=== PATIENT | male | born 1965 | race Caucasian/White ===

== ENCOUNTER 2017-11-30 06:00 | Inpatient (IN) | payer OTHER ==
[~2017-11-30] VITALS: Ht 165.1 cm; Wt 67.6 kg
[2017-11-30] MEDS ORDERED: ACETAMINOPHEN 325MG TABLET PO STA (09:06)
[2017-11-30 09:32] LABS: EOSINOPHILS % 5.2 % (0.0-5.0); HEMATOCRIT. 32.7 % (42.0-52.0); LYMPHOCYTES % 11.5 % (20.0-50.0); MEAN CORPUSCULAR HEMOGLOBIN 32.8 pg (28.0-32.0); MEAN CORPUSCULAR VOLUME 97.7 fL (80.0-94.0); MEAN PLATELET VOLUME 7.8 fl (7.4-10.4); MONOCYTES % 8.8 % (2.0-8.0); NEUTROPHILS % 73.5 % (40.0-76.0); PLATELET 211 x1000/uL (130-400); RED BLOOD CELL COUNT 3.34 mill/uL (4.7-6.1); RED CELL DISTRIBUTION WIDTH 16.3 % (11.6-14.6)
[2017-11-30 09:54] LABS: CLARITY URINE CLEAR (CLEAR); COLOR URINE YELLOW (YELLOW); KETONES URINE NEGATIVE (NEGATIVE); LEUKOCYTE ESTERASE URINE NEGATIVE (NEGATIVE); NITRITE URINE NEGATIVE (NEGATIVE); OCCULT BLOOD URINE 1+ (NEGATIVE); PROTEIN URINE 4+ (NEGATIVE); SPECIFIC GRAVITY URINE 1.019 (1.005-1.030); UROBILINOGEN URINE 0.2 E.U./dL (0.2-1.0)
[2017-11-30 10:26] LABS: CHLORIDE 112 mEq/L (98-107)
[2017-11-30] MEDS ORDERED: SODIUM POLYSTYRENE SULFONATE 15 G/60 ML BOT PO ONE (11:15)
[2017-11-30] MEDS ORDERED: SODIUM BICARBONATE 8.4% 1 MEQ/ML 50ML SYR IV ONE (11:15)
[2017-11-30] MEDS ORDERED: DEXTROSE 50% WATER 50ML SYRINGE IV ONE (11:15)
[2017-11-30] MEDS ORDERED: INSULIN REGULAR (HUMULIN R) 300UNITS/3ML IV ONE (11:15)
[2017-11-30] MEDS ORDERED: MAGNESIUM/ALUMINUM HYDROXIDE/SIMETHICONE 30ML UDC PO PRN (15:45)
[2017-11-30] MEDS ORDERED: GUAIFENESIN 200MG/10ML SUGAR FREE UDC PO PRN (15:45)
[2017-11-30] MEDS ORDERED: NA PHOS,M-B/NA PHOS,DI-BA ENEMA 118ML PR PRN (15:45)
[2017-11-30] MEDS ORDERED: DEXTROSE 50% WATER 50ML SYRINGE IV PRN (15:45)
[2017-11-30] MEDS ORDERED: DOCUSATE SODIUM 100MG CAPSULE PO PRN (15:45)
[2017-11-30] MEDS ORDERED: DIPHENHYDRAMINE 50MG/ML VIAL IV PRN (15:45)
[2017-11-30] MEDS ORDERED: CLONIDINE 0.1MG TABLET PO PRN (15:45)
[2017-11-30] MEDS ORDERED: ACETAMINOPHEN 325MG TABLET PO PRN (15:45)
[2017-11-30] MEDS ORDERED: IPRATROPIUM/ALBUTEROL 0.5-3(2.5)MG/3ML NEB INH PRN (15:45)
[2017-11-30] MEDS ORDERED: ZOLPIDEM TARTRATE 5MG TABLET PO PRN (15:45)
[2017-11-30] MEDS ORDERED: ONDANSETRON HCL 4MG/2ML VIAL IV PRN (15:45)
[2017-11-30] MEDS ORDERED: LORAZEPAM 0.5MG TABLET PO PRN (15:45)
[2017-11-30] MEDS ORDERED: NITROGLYCERIN 0.4MG TABLET SL SL PRN (15:45)
[2017-11-30] MEDS ORDERED: TRAMADOL 50MG TABLET PO PRN (18:43)
[2017-11-30 22:42] LABS: *AMPHETAMINES SCREEN URINE NEGATIVE (NEGATIVE); *BARBITURATES SCREEN URINE NEGATIVE (NEGATIVE); *BENZODIAZEPINES SCREEN URINE NEGATIVE (NEGATIVE); *COCAINE SCREEN URINE NEGATIVE (NEGATIVE); CANNABINOID URINE SCREEN NEGATIVE (NEGATIVE); METHADONE URINE SCREEN NEGATIVE (NEGATIVE); OPIATES URINE SCREEN NEGATIVE (NEGATIVE); PHENCYCLIDINE URINE SCREEN NEGATIVE (NEGATIVE)
[2017-12-01 04:45] VITALS: BP 164/91
[2017-12-01] MEDS ORDERED: SODIUM POLYSTYRENE SULFONATE 15 G/60 ML BOT PO NR (06:00)
[2017-12-01] MEDS: HYDRALAZINE HCL 50MG TABLET PO SCH ×3 (06:13→21:24)
[2017-12-01] MEDS: INSULIN LISPRO 100 UNITS/ML SUBCUT SCH ×4 (06:15→21:23)
[2017-12-01] MEDS: BLOOD SUGAR DIAGNOSTIC STRIP TEST SCH ×4 (06:15→21:00)
[2017-12-01 08:00] VITALS: BP 123/71
[2017-12-01] MEDS: CITRIC ACID/SODIUM CITRATE SOLN 15ML UDC PO SCH ×3 (09:21→18:13)
[2017-12-01] MEDS: FUROSEMIDE 40MG/4ML VIAL IVP SCH ×2 (09:22→21:22)
[2017-12-01] MEDS: METOPROLOL TARTRATE 25MG TABLET PO SCH ×2 (09:22→21:00)
[2017-12-01] MEDS: FAMOTIDINE 20MG/2ML VIAL IV SCH (09:22)
[2017-12-01] MEDS: AMLODIPINE 10MG TABLET PO SCH (09:22)
[2017-12-01] MEDS: FOLIC ACID/VITAMIN B COMP W-C TABLET PO SCH (09:23)
[2017-12-01] MEDS: SEVELAMER CARBONATE 800 MG TABLET PO SCH ×3 (09:23→18:14)
[2017-12-01] MEDS: ENOXAPARIN 30MG/0.3ML SYR SUBCUT SCH (09:24)
[2017-12-01 12:00] VITALS: BP 132/73
[2017-12-01 16:00] VITALS: BP 122/73
[2017-12-01 20:30] VITALS: BP 153/83
[2017-12-02 00:10] VITALS: BP 139/80
[2017-12-02 04:02] VITALS: BP 154/81
[2017-12-02] MEDS: BLOOD SUGAR DIAGNOSTIC STRIP TEST SCH (06:15)
[2017-12-02] MEDS: HYDRALAZINE HCL 50MG TABLET PO SCH (06:16)
[2017-12-02] MEDS ORDERED: ASPI-1159 PO (06:33)
[2017-12-02] MEDS ORDERED: SEVE0.8P3 PO (06:33)
[2017-12-02] MEDS ORDERED: CALC0.253 PO (06:33)
[2017-12-02] MEDS ORDERED: ASCO-316 PO (06:33)
[2017-12-02] MEDS ORDERED: LOSA100T14 PO (06:33)
[2017-12-02] MEDS ORDERED: CALC667C PO (06:33)
[2017-12-02] MEDS ORDERED: FURO40TA5 PO (06:33)
[2017-12-02] MEDS ORDERED: [UNRECOGNIZED DRUG - OTHER] PO (06:33)
[2017-12-02] MEDS ORDERED: DOCU-138 PO ×2 (06:33)
[2017-12-02] MEDS ORDERED: CARV12.545 PO (06:33)
[2017-12-02 07:09] LABS: BASOPHILS % 0.9 % (0.0-2.0); EOSINOPHILS % 5.9 % (0.0-5.0); HEMATOCRIT. 29.8 % (42.0-52.0); HEMOGLOBIN. 10.2 g/dL (14.0-18.0); LYMPHOCYTES % 33.1 % (20.0-50.0); MEAN CORPUSCULAR HEMOGLOBIN 32.2 pg (28.0-32.0); MEAN CORPUSCULAR VOLUME 94.5 fL (80.0-94.0); MEAN PLATELET VOLUME 7.8 fl (7.4-10.4); MONOCYTES % 11.8 % (2.0-8.0); NEUTROPHILS % 48.3 % (40.0-76.0); PLATELET 195 x1000/uL (130-400); RED BLOOD CELL COUNT 3.16 mill/uL (4.7-6.1); RED CELL DISTRIBUTION WIDTH 15.4 % (11.6-14.6)
[2017-12-02] MEDS: INSULIN LISPRO 100 UNITS/ML SUBCUT SCH (07:27)
[2017-12-02 07:31] LABS: PHOSPHORUS 4.9 mg/dL (2.5-4.9)
[2017-12-02 08:00] VITALS: BP 158/88
[2017-12-02] MEDS: FAMOTIDINE 20MG/2ML VIAL IV SCH (08:27)
[2017-12-02] MEDS: FUROSEMIDE 40MG/4ML VIAL IVP SCH (08:27)
[2017-12-02] MEDS: SEVELAMER CARBONATE 800 MG TABLET PO SCH (08:27)
[2017-12-02] MEDS: CITRIC ACID/SODIUM CITRATE SOLN 15ML UDC PO SCH (08:27)
[2017-12-02] MEDS: ENOXAPARIN 30MG/0.3ML SYR SUBCUT SCH (08:28)
[2017-12-02] MEDS: METOPROLOL TARTRATE 25MG TABLET PO SCH (08:28)
[2017-12-02] MEDS: FOLIC ACID/VITAMIN B COMP W-C TABLET PO SCH (08:28)
[2017-12-02] MEDS: AMLODIPINE 10MG TABLET PO SCH (08:28)
[2017-12-02 10:45] VITALS: BP 158/88
== END 2017-12-02 11:30 | disposition home or self-care (01) | DRG 640 ==
LOC: ER 06:00 → 6WST 11:33 → EDBEDREQ 12-01 01:45 → ENRESERV 12-01 03:24
PROVIDERS: ADMIT Internal Medicine; ATTEND Internal Medicine
DX: E87.5 Hyperkalemia (principal); N18.6 End stage renal disease; E11.22 Type 2 diabetes mellitus with diabetic chronic kidney disease; E87.2 Acidosis; I12.0 Hypertensive chronic kidney disease with stage 5 chronic kidney disease or end stage renal disease; D63.8 Anemia in other chronic diseases classified elsewhere; J06.9 Acute upper respiratory infection, unspecified; E78.00 Pure hypercholesterolemia, unspecified; R09.02 Hypoxemia; Z82.49 Family history of ischemic heart disease and other diseases of the circulatory system; Z83.3 Family history of diabetes mellitus; Z91.19 Patient's noncompliance with other medical treatment and regimen; Z99.2 Dependence on renal dialysis; Z79.899 Other long term (current) drug therapy
CPT/HCPCS: 36415; 71045; 76770; 80048; 80053; 80061; 80305; 81003; 82962; 83036; 83735; 84100; 84484; 85025; 87070; 87430; 87804; 93005; 93970; 96374; 96375; 99291; J1650; J1815; J1940; J3490; J7030

== ENCOUNTER 2018-06-11 10:25 | Emergency (ER) | payer OTHER ==
[~2018-06-11] VITALS: Ht 152.4 cm; Wt 72.0 kg
[~2018-06-11 10:25] MED LIST: ASCO-316 PO; ASPI-1159 PO; CALC0.253 PO; CALC667C PO; CARV12.545 PO; DOCU-138 PO; FURO40TA5 PO; LOSA100T14 PO; SEVE0.8P3 PO; [UNRECOGNIZED DRUG - OTHER] PO
[2018-06-11 14:16] LABS: BASOPHILS % 1.3 % (0.0-2.0); EOSINOPHILS % 8.6 % (0.0-5.0); HEMATOCRIT. 32.4 % (42.0-52.0); HEMOGLOBIN. 11.1 g/dL (14.0-18.0); LYMPHOCYTES % 28.5 % (20.0-50.0); MEAN CORPUSCULAR VOLUME 96.3 fL (80.0-94.0); MEAN PLATELET VOLUME 7.5 fl (7.4-10.4); MONOCYTES % 7.7 % (2.0-8.0); NEUTROPHILS % 53.9 % (40.0-76.0); PLATELET 240 x1000/uL (130-400); RED BLOOD CELL COUNT 3.36 mill/uL (4.7-6.1); RED CELL DISTRIBUTION WIDTH 14.6 % (11.6-14.6)
[2018-06-11 14:22] LABS: CHLORIDE 100 mEq/L (98-107)
[2018-06-11 14:23] LABS: PARTIAL THROMBOPLASTIN TIME 26.2 sec (23.4-31.0); PROTHROMBIN TIME 10.4 sec (9.1-11.1)
[2018-06-11 17:15] VITALS: BP 198/98
== END 2018-06-11 18:27 | disposition home or self-care (01) ==
LOC: ER 10:25
DX: H53.8 Other visual disturbances (principal); E11.22 Type 2 diabetes mellitus with diabetic chronic kidney disease; E11.65 Type 2 diabetes mellitus with hyperglycemia; I12.0 Hypertensive chronic kidney disease with stage 5 chronic kidney disease or end stage renal disease; E78.00 Pure hypercholesterolemia, unspecified; R94.31 Abnormal electrocardiogram [ECG] [EKG]; H40.9 Unspecified glaucoma; H54.62 Unqualified visual loss, left eye, normal vision right eye; D53.9 Nutritional anemia, unspecified; E87.5 Hyperkalemia; N18.6 End stage renal disease; Z99.2 Dependence on renal dialysis
CPT/HCPCS: 36415; 80053; 85025; 85610; 85730; 93005; 99285

== ENCOUNTER 2019-10-10 08:12 | Emergency (ER) | payer OTHER ==
[~2019-10-10] VITALS: Ht 165.1 cm; Wt 71.0 kg
[~2019-10-10 08:12] MED LIST changes: -ASPI-1159 PO; +ASPI-1497 PO; -LOSA100T14 PO; +LOSA100T32 PO
[2019-10-10 08:55] LABS: BASOPHILS % 1.3 % (0.0-2.0); EOSINOPHILS % 5.7 % (0.0-5.0); LYMPHOCYTES % 19.5 % (20.0-50.0); MEAN CORPUSCULAR HEMOGLOBIN 34.2 pg (28.0-32.0); MEAN CORPUSCULAR VOLUME 99.9 fL (80.0-94.0); MEAN PLATELET VOLUME 6.7 fl (7.4-10.4); MONOCYTES % 6.5 % (2.0-8.0); PLATELET 336 x1000/uL (130-400)
[2019-10-10 08:59] LABS: CHLORIDE 98 mEq/L (98-107)
[2019-10-10 09:45] LABS: PHOSPHORUS 3.4 mg/dL (2.5-4.9)
[2019-10-10 10:18] VITALS: BP 138/85
== END 2019-10-10 10:20 | disposition home or self-care (01) ==
LOC: ER 08:12
DX: Z04.89 Encounter for examination and observation for other specified reasons (principal); E87.5 Hyperkalemia; E11.22 Type 2 diabetes mellitus with diabetic chronic kidney disease; I12.0 Hypertensive chronic kidney disease with stage 5 chronic kidney disease or end stage renal disease; N18.6 End stage renal disease; E78.00 Pure hypercholesterolemia, unspecified; H40.9 Unspecified glaucoma; Z99.2 Dependence on renal dialysis
CPT/HCPCS: 36415; 80053; 83735; 84100; 85025; 93005; 99284

== ENCOUNTER 2019-11-29 10:49 | Emergency (ER) | payer OTHER ==
[~2019-11-29] VITALS: Ht 165.1 cm; Wt 71.0 kg
[2019-11-29] MEDS ORDERED: MORPHINE SULFATE 4 MG/ML CPJ (NOT FOR IM USE) IV STA (12:22)
[2019-11-29 13:00] LABS: BASOPHILS % 0.5 % (0.0-2.0); HEMATOCRIT. 31.3 % (42.0-52.0); HEMOGLOBIN. 10.7 g/dL (14.0-18.0); LYMPHOCYTES % 8.8 % (20.0-50.0); MEAN CORPUSCULAR HEMOGLOBIN 35.2 pg (28.0-32.0); MEAN CORPUSCULAR VOLUME 102.9 fL (80.0-94.0); MEAN PLATELET VOLUME 7.4 fl (7.4-10.4); NEUTROPHILS % 82.7 % (40.0-76.0); PLATELET 220 x1000/uL (130-400); RED BLOOD CELL COUNT 3.05 mill/uL (4.7-6.1); RED CELL DISTRIBUTION WIDTH 15.2 % (11.6-14.6)
[2019-11-29 13:07] LABS: CHLORIDE 102 mEq/L (98-107)
[2019-11-29 13:10] LABS: INR 1.1; PROTHROMBIN TIME 11.5 sec (9.6-11.0)
[2019-11-29] MEDS ORDERED: INSULIN REGULAR (HUMULIN R) 300UNITS/3ML IV ONE (15:00)
[2019-11-29] MEDS ORDERED: SODIUM POLYSTYRENE SULFONATE 15 G/60 ML BOT PO ONE (15:00)
[2019-11-29] MEDS ORDERED: MORPHINE SULFATE 4 MG/ML CPJ (NOT FOR IM USE) IV ONE ×2 (15:00→21:00)
[2019-11-29] MEDS ORDERED: DEXTROSE 50% WATER 50ML SYRINGE IV ONE (15:00)
[2019-11-29] MEDS ORDERED: INSULIN REGULAR (HUMULIN R) 300UNITS/3ML IV NR (15:15)
[2019-11-29] MEDS ORDERED: DEXTROSE 50% WATER 50ML SYRINGE IV NR (15:15)
[2019-11-29] MEDS ORDERED: MORPHINE SULFATE 4 MG/ML CPJ (NOT FOR IM USE) IV NR (15:15)
[2019-11-29 19:45] VITALS: BP 158/84
[2019-11-29] MEDS ORDERED: ONDANSETRON HCL 4MG/2ML INJ IV ONE (21:00)
== END 2019-11-29 21:00 | disposition short-term general hospital (02) ==
LOC: ER 10:49
DX: S32.512A Fracture of superior rim of left pubis, initial encounter for closed fracture (principal); S32.511A Fracture of superior rim of right pubis, initial encounter for closed fracture; S32.432A Displaced fracture of anterior column [iliopubic] of left acetabulum, initial encounter for closed fracture; E87.5 Hyperkalemia; I13.11 Hypertensive heart and chronic kidney disease without heart failure, with stage 5 chronic kidney disease, or end stage renal disease; E11.22 Type 2 diabetes mellitus with diabetic chronic kidney disease; N18.6 End stage renal disease; M54.5 Low back pain; H40.9 Unspecified glaucoma; Z99.2 Dependence on renal dialysis; E78.00 Pure hypercholesterolemia, unspecified; Z98.890 Other specified postprocedural states; Z79.899 Other long term (current) drug therapy; W11.XXXA Fall on and from ladder, initial encounter; Y93.89 Activity, other specified; Y92.89 Other specified places as the place of occurrence of the external cause; Y99.8 Other external cause status
CPT/HCPCS: 36415; 71045; 72131; 72192; 73502; 73552; 80053; 82962; 84484; 85025; 85610; 86850; 86900; 86901; 93005; 96374; 96375; 96376; 99285; J1815; J2270; J2405

== ENCOUNTER 2025-02-20 16:45 | Inpatient (IN) | payer MEDICAID, MEDICARE ==
[~2025-02-20] VITALS: Ht 157.5 cm; Wt 61.2 kg
[~2025-02-20 16:45] MED LIST changes: -LOSA100T32 PO; +LOSA100T33 PO
[2025-02-20 17:41] LABS: BASOPHILS % 1.3 % (0.0-2.0); DIFFERENTIAL COMMENT 0; EOSINOPHILS % 1.6 % (0.0-5.0); HEMATOCRIT. 24.2 % (42.0-52.0); HEMOGLOBIN. 8.4 g/dL (14.0-18.0); LYMPHOCYTES % 9.6 % (20.0-50.0); MEAN CORPUSCULAR HEMOGLOBIN 35.1 pg (28.0-32.0); MEAN CORPUSCULAR HGB CONC 34.9 g/dL (31.0-37.0); MEAN CORPUSCULAR VOLUME 100.5 fL (80.0-94.0); MEAN PLATELET VOLUME 8.5 fl (7.4-10.4); MONOCYTES % 10.1 % (2.0-8.0); NEUTROPHILS % 77.4 % (40.0-76.0); PLATELET 194 x1000/uL (130-400); RED CELL DISTRIBUTION WIDTH 19.9 % (11.6-14.6); WHITE BLOOD COUNT 4.4 x1000/uL (4.5-11.0)
[2025-02-20 17:49] LABS: CHLORIDE 94 mEq/L (98-107); POTASSIUM 3.5 mEq/L (3.5-5.1); SODIUM 134 mEq/L (136-145)
[2025-02-20 17:50] LABS: CARBON DIOXIDE 31 mEq/L (21-32)
[2025-02-20 17:52] LABS: INR 1.2; PARTIAL THROMBOPLASTIN TIME 23.4 sec (23.4-31.0); PROTHROMBIN TIME 12.3 sec (9.6-11.0)
[2025-02-20 17:55] LABS: CREATININE 4.6 mg/dL (0.6-1.3); ETHANOL BLOOD < 10 mg/dL (<10); GLUCOSE 121 mg/dL (70-105); UREA NITROGEN BLOOD 34 mg/dL (9-23)
[2025-02-20 17:56] LABS: AMMONIA 35 uMol/L (<32)
[2025-02-20 17:57] LABS: ALANINE AMINOTRANSFERASE 24 IU/L (10-49); ALBUMIN 3.3 g/dL (3.2-4.8); ASPARTATE AMINOTRANSFERASE 81 IU/L (<34); BILIRUBIN DIRECT 0.6 mg/dL (<=3.0); BILIRUBIN TOTAL 1.1 mg/dL (0.1-1.0); PROTEIN TOTAL 6.3 g/dL (6.0-8.3)
[2025-02-20 18:12] LABS: TROPONIN I HIGH SENSITIVITY 210 ng/L (3.0-53)
[2025-02-20] MEDS: ASPIRIN 81MG TABLET PO ONE (19:56)
[2025-02-20] MEDS: LACTULOSE 20G/30ML UDC PO ONE (20:00)
[2025-02-20 22:25] VITALS: BP 131/73; PULSE 86; RESP 20; TEMP 36.7
[2025-02-20] MEDS ORDERED: IOHEXOL-350 100 ML BOTTLE ONE (23:34)
[2025-02-21] VITALS (9 sets, daily range): BP systolic 90–126; BP diastolic 46–74; PULSE 72–100; RESP 18–20; TEMP 36.6–36.9; O2SAT 95–100
[2025-02-21] MEDS ORDERED: CALC667C MT (00:34)
[2025-02-21] MEDS ORDERED: GABA-529 MT (00:34)
[2025-02-21] MEDS ORDERED: SODI10PO PO (00:34)
[2025-02-21] MEDS ORDERED: OMEP20CA14 MT (00:34)
[2025-02-21] MEDS ORDERED: LISI2.5T47 MT (00:34)
[2025-02-21] MEDS ORDERED: TRAM50TA3 MT (00:34)
[2025-02-21] MEDS ORDERED: PIOG15TA66 MT (00:34)
[2025-02-21] MEDS ORDERED: CARV12.545 MT (00:34)
[2025-02-21] MEDS ORDERED: AMLO5TAB88 MT (00:34)
[2025-02-21] MEDS ORDERED: LEVO75TA7 MT (00:34)
[2025-02-21] MEDS ORDERED: HYDROCODONE/ACETAMINOPHEN 5/325MG TABLET PO PRN (00:45)
[2025-02-21] MEDS ORDERED: DEXTROSE 50% WATER 50ML SYRINGE IV PRN (00:45)
[2025-02-21] MEDS ORDERED: NALOXONE HCL 0.4MG/ML VIAL IV PRN (01:15)
[2025-02-21] MEDS: GABAPENTIN 100MG CAPSULE PO SCH (01:40)
[2025-02-21] MEDS: BLOOD SUGAR DIAGNOSTIC STRIP TEST SCH (06:55)
[2025-02-21] MEDS: INSULIN LISPRO 100 UNITS/ML SUBCUT SCH (07:43)
[2025-02-21 07:57] LABS: CALCIUM 9.8 mg/dL (8.7-10.4)
[2025-02-21 08:04] LABS: PHOSPHORUS 3.5 mg/dL (2.5-4.9)
[2025-02-21 08:05] LABS: THYROID STIMULATING HORMONE 26.72 uIU/mL (0.55-4.78)
[2025-02-21 08:06] LABS: CREATININE 5.8 mg/dL (0.6-1.3)
[2025-02-21 08:19] LABS: HEPATITIS B SURFACE ANTIGEN NEGATIVE (Negative)
[2025-02-21 08:40] LABS: HEPATITIS C AB NON REACTIVE (Neg) (Negative)
[2025-02-21 08:46] LABS: HEMATOCRIT 28.4 % (42.0-52.0); HEMOGLOBIN 9.7 g/dL (14.0-18.0); MEAN CORPUSCULAR HEMOGLOBIN 34.8 pg (28.0-32.0); MEAN CORPUSCULAR HGB CONC 34.2 g/dL (31.0-37.0); MEAN CORPUSCULAR VOLUME 101.7 fL (80.0-94.0); PLATELET 208 x1000/uL (130-400); RED BLOOD CELL COUNT 2.79 mill/uL (4.7-6.1); RED CELL DISTRIBUTION WIDTH 19.8 % (11.6-14.6); WHITE BLOOD COUNT 5.1 x1000/uL (4.5-11.0)
[2025-02-21] MEDS: AMLODIPINE 5MG TABLET PO SCH (09:00)
[2025-02-21] MEDS ORDERED: MEDICATION NOT ON FORMULARY EA (Omeprazole 1 CAP) MT SCH (09:00)
[2025-02-21] MEDS: SODIUM ZIRCONIUM CYCLOSILICATE 10GM/PACKET PO SCH (09:03)
[2025-02-21] MEDS: LEVOTHYROXINE SODIUM 75MCG TABLET PO SCH (09:04)
[2025-02-21] MEDS: LISINOPRIL 2.5MG TABLET PO SCH (09:04)
[2025-02-21] MEDS: PANTOPRAZOLE 40MG DR TABLET PO SCH (09:05)
[2025-02-21] MEDS: CARVEDILOL 12.5MG TABLET PO SCH (09:05)
[2025-02-21] MEDS: CALCIUM ACETATE 667MG CAPSULE PO SCH (09:06)
[2025-02-21 13:25] LABS: HEPATITIS B SURFACE ANTIGEN NEGATIVE (Negative)
[2025-02-21 13:46] LABS: HEPATITIS A AB IGM NEGATIVE (Negative)
[2025-02-21 13:47] LABS: HEPATITIS B CORE AB IGM NEGATIVE (Negative); HEPATITIS C AB NON REACTIVE (Neg) (Negative)
== END 2025-02-21 19:06 | disposition home or self-care (01) | DRG 70 ==
LOC: ER 16:45 → EDBEDREQ 19:40 → ENRESERV 22:00 → 7WST 22:52
PROVIDERS: ADMIT Internal Medicine; ATTEND Internal Medicine
PROC: 5A1D70Z Performance of Urinary Filtration, Intermittent, Less than 6 Hours Per Day (ICD-10-PCS; principal; 2025-02-21)
DX: G93.41 Metabolic encephalopathy (principal); N18.6 End stage renal disease; I12.0 Hypertensive chronic kidney disease with stage 5 chronic kidney disease or end stage renal disease; R18.8 Other ascites; G90.89 Other disorders of autonomic nervous system; I95.3 Hypotension of hemodialysis; E11.22 Type 2 diabetes mellitus with diabetic chronic kidney disease; E78.00 Pure hypercholesterolemia, unspecified; K86.89 Other specified diseases of pancreas; Z82.49 Family history of ischemic heart disease and other diseases of the circulatory system; Z83.3 Family history of diabetes mellitus; Z85.05 Personal history of malignant neoplasm of liver; Z99.2 Dependence on renal dialysis
CPT/HCPCS: 36415; 70496; 70498; 71045; 80048; 80076; 80320; 82140; 82962; 83036; 83880; 84100; 84443; 84484; 85025; 85027; 86705; 86709; 87340; 90935; 93005; 99291; J1815; Q9967; G0480